=== PATIENT | female | born 1990 | race Caucasian/White ===

== ENCOUNTER 2017-02-17 16:32 | Emergency (ER) | payer OTHER ==
[~2017-02-17] VITALS: Ht 165.1 cm; Wt 100.0 kg
[2017-02-17 16:52] VITALS: BP 115/71; PULSE 80; RESP 20; O2SAT 100
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
[2017-02-17 17:40] LABS: BASOPHILS % (AUTO) 0.1 % (0-3); MONOCYTES % (AUTO) 5.7 % (4-12); Mean Corpuscular Hemoglobin 28.5 pg (27.0-35.0); Mean Corpuscular Volume 86.1 fL (81-100); NEUTROPHILS % (AUTO) 78.2 % (40-74); Platelet Count 227 bil/L (150-400)
[2017-02-17 18:06] VITALS: BP 130/78; PULSE 88; RESP 18; O2SAT 100
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
[2017-02-17] MEDS ORDERED: HYDROmorphone 1 mg/mL Inj IVPUSH ONE (18:20)
[2017-02-17] MEDS ORDERED: oxyCODONE-Acetamin 5-325 mg Tablet PO ONE (19:40)
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
[2017-02-17] MEDS ORDERED: _oxyCODONE/APAP 5-325 mg Tablet PO PRN (20:20)
[2017-02-17 20:25] VITALS: BP 120/70; PULSE 68; RESP 18; O2SAT 99
[2017-02-17] MEDS ORDERED: OXYC-407 PO (20:50)
[2017-02-17 21:14] VITALS: BP 120/70; PULSE 68; RESP 18; O2SAT 99
== END 2017-02-17 21:15 | disposition home or self-care (01) ==
LOC: EDBD 16:32 → SED 16:32
DX: S40.012A Contusion of left shoulder, initial encounter (principal); S80.12XA Contusion of left lower leg, initial encounter; V48.5XXA Car driver injured in noncollision transport accident in traffic accident, initial encounter; Y93.9 Activity, unspecified; Y92.410 Unspecified street and highway as the place of occurrence of the external cause; Y99.8 Other external cause status; Z91.018 Allergy to other foods
CPT/HCPCS: 36415; 71010; 73000; 73590; 80053; 82550; 85025; 96374; 99284; J1170

== ENCOUNTER 2017-03-01 13:09 | Inpatient (IN) | payer OTHER ==
[~2017-03-01] VITALS: Ht 165.1 cm; Wt 101.7 kg
[~2017-03-01 13:09] MED LIST: OXYC-407 PO
[2017-03-01 13:36] VITALS: BP 117/80; PULSE 80; RESP 16; O2SAT 100
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
[2017-03-01] MEDS ORDERED: cefTRIAXone Inj 2,000 MG in Dextrose 5% 50 ML IV STA (15:38)
[2017-03-01] MEDS ORDERED: 0.9% Sodium Chloride 1,000 ML IV ONE (15:38)
[2017-03-01] MEDS ORDERED: Alum-Mag Hydrox-Simeth 30 mL Suspension PO PRN ×2 (15:40→17:10)
[2017-03-01] MEDS ORDERED: Ondansetron 2 mg/mL 2 mL Inj IVPUSH PRN ×2 (15:40→17:10)
[2017-03-01] MEDS ORDERED: Vancomycin Dose per Pharmacist XX ONE (15:40)
[2017-03-01] MEDS ORDERED: HYDROmorphone 0.5 mg/0.5 mL iSecure Syringe IVPUSH ONE (15:40)
[2017-03-01] MEDS ORDERED: Vancomycin Inj 2,000 MG in 0.9% Sodium Chloride 500 ML IV ONE (15:45)
[2017-03-01 16:10] LABS: BASOPHILS % (AUTO) 0.2 % (0-3); EOSINOPHILS % (AUTO) 2.1 % (0-5); MONOCYTES % (AUTO) 5.6 % (4-12); Mean Corpuscular Hemoglobin 28.1 pg (27.0-35.0); Mean Corpuscular Volume 86.5 fL (81-100); NEUTROPHILS % (AUTO) 76.5 % (40-74); Platelet Count 269 bil/L (150-400)
[2017-03-01] MEDS ORDERED: ACET325T51 PO (16:11)
[2017-03-01] MEDS ORDERED: IBUP-1827 PO (16:11)
--- NOTE | 2017-03-01 16:28 | DRSVH ---
PROCEDURE: X-RAY LEFT TIBIA/FIBULA, TWO VIEWS ([id number]) INDICATIONS: LLE pain TECHNIQUE: 2 views of the tibia and fibula were acquired. COMPARISON: [facility], CR, XR TIBIA FIBULA 2VW LT, 02/17/2017, 17:37. FINDINGS: Bones: No fractures or dislocations. No suspicious bony lesions. Soft tissues: Prominent soft tissue edema is noted along the medial aspect of the mid left lower leg, which has increased since the previous exam with slight increasing subcutaneous edema. IMPRESSION: 1. No acute osseous abnormality of the left lower leg. 2. Increasing soft tissue swelling along the medial aspect of the mid left lower leg is concerning f or possible hematoma or muscle trauma. Please consider MRI for further evaluation. Dictated by: Duane Kelley M.D. on 03/01/2017 at 15:20 Approved by: Duane Kelley M.D. on 03/01/2017 at 15:26
[2017-03-01 16:32] VITALS: BP 114/71; PULSE 81; RESP 16; O2SAT 100
[2017-03-01 16:39] LABS: Creatine Kinase 45 U/L (21-215)
[2017-03-01 16:40] VITALS: BP 134/78; PULSE 69; RESP 16; O2SAT 100
[2017-03-01] MEDS ORDERED: Polyethylene Glycol (PEG) 17 Gm Powder PO PRN (17:10)
[2017-03-01] MEDS: Vancomycin Dose per Pharmacist XX SCH (17:15)
--- NOTE | 2017-03-01 17:42 | NUR ---
Admit to room 240-1 Pt arrived from ER on stretcher. Able to stand and transfer to bed indep. Clarified vanco dosing with pharmacy. Oriented to room and call light. Request made to md for diet and PO pain medication.
[2017-03-01] MEDS: HYDROcodone-APAP 5-325 mg Tablet PO PRN ×2 (18:17→22:43)
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
--- NOTE | 2017-03-01 19:36 | DRSVH ---
PROCEDURE: US EXTREMITY SONOGRAM LIMITED ([id number]) INDICATIONS: cellulitis, possible abscess TECHNIQUE: Real-time scanning was performed of the distal right lower extremity, with image document ation. COMPARISON: None. FINDINGS: There is a large mostly anechoic fluid collection or hematoma with linear areas of increase d echogenicity throughout the subcutaneous tissues of the clinical area of concern. IMPRESSION: Mass involving the entire left calf clinical area of concern may represent hematoma or fl uid collection with synechia. Infection cannot be excluded. This area could be sampled under ultrasou nd guidance if needed. Dictated by: Bart Garcia M.D. on 03/01/2017 at 19:29 Approved by: Bart Garcia M.D. on 03/01/2017 at 19:34
[2017-03-01 20:31] VITALS: BP 128/78; PULSE 78; RESP 18; O2SAT 99
--- NOTE | 2017-03-01 20:39 | NUR ---
MRI off floor via w/c to have MRI Addendum: 03/01/17 at 2119 by ASHOK MITCHELL RN returned floor
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
[2017-03-02] MEDS: Heparin 5,000 Unit/mL Inj SUBQ SCH ×3 (00:23→16:51)
--- NOTE | 2017-03-02 00:24 | PCM.PHAPRO ---
Progress Date of Service: Mar 02, 2017 Left lower extremity cellulitis Vancomycin Management Per Pharmacy: Indication: Cellulitis Goal Trough: 10-15 mg/dL Labs: WBC: 9.3 Lactate: 0.7 ESR: 44 CRP: 5.0 SrCr: 0.63 mg/dL Est CrCl: > 120 mL/min Additional Abx: Rocephin Nephrotoxic Risk Factors: None Vitals: All stable Recommendation: Load: Vancomycin 2000 mg IV x 1 (~20 mg/kg) Maintenance: Vancomycin 1250 mg IV Q12h (~15 mg/kg adjusted body weight) Trough: Draw on 03/04 @ 0730 Pharmacy to continue to monitor and adjust dose as needed. Thank You, Lizy Joseph, Pharm D. Lizy Joseph Mar 02, 2017 00:24
[2017-03-02 00:37] VITALS: BP 98/62; PULSE 81; RESP 16; O2SAT 96
[2017-03-02 05:59] VITALS: BP 106/71; PULSE 78; RESP 17; O2SAT 98
[2017-03-02 07:17] LABS: BASOPHILS % (AUTO) 0.2 % (0-3); MONOCYTES % (AUTO) 8.1 % (4-12); Mean Corpuscular Hemoglobin 28.6 pg (27.0-35.0); Mean Corpuscular Volume 87.8 fL (81-100); NEUTROPHILS % (AUTO) 64.7 % (40-74); Platelet Count 238 bil/L (150-400)
[2017-03-02 07:40] VITALS: BP 104/67; PULSE 89; RESP 18; O2SAT 97
[2017-03-02] MEDS: cefTRIAXone Inj 2,000 MG in Dextrose 5% Minibag Plus 50 ML IV SCH (08:14)
[2017-03-02] MEDS: HYDROcodone-APAP 5-325 mg Tablet PO PRN ×2 (08:22→16:52)
[2017-03-02] MEDS: Vancomycin Dose per Pharmacist XX SCH (08:28)
[2017-03-02] MEDS ORDERED: Vancomycin Inj 1,250 MG in 0.9% Sodium Chloride 250 ML IV SCH (08:30)
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
[2017-03-02 17:50] VITALS: BP 111/74; PULSE 77; RESP 18; O2SAT 98
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
--- NOTE | 2017-03-02 18:01 | NUR ---
Pain/skin Pain in left lower leg controlled with 1 norco prn, given 2x today. Reports less pain with ambulation to BR. Left barnhart/calf region decreased in redness from area marked yesterday. less swelling Per patient - Dr Olivares and group plan to place a drain, cont to monitor.
[2017-03-02 20:38] VITALS: BP 111/74; PULSE 88; RESP 18; O2SAT 99
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
[2017-03-03] MEDS: Heparin 5,000 Unit/mL Inj SUBQ SCH ×3 (00:38→16:52)
[2017-03-03 06:03] VITALS: BP 114/60; PULSE 87; RESP 17; O2SAT 97
--- NOTE | 2017-03-03 06:31 | NUR ---
Shift note Uneventful night,, went through the whole night without need for pain meds
[2017-03-03] MEDS: cefTRIAXone Inj 2,000 MG in Dextrose 5% Minibag Plus 50 ML IV SCH (08:13)
[2017-03-03 10:59] VITALS: BP 126/83; PULSE 83; RESP 18; O2SAT 96
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
[2017-03-03 14:28] VITALS: BP 108/67; PULSE 75; RESP 18; O2SAT 97
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
[2017-03-03 18:27] VITALS: BP 124/79; RESP 18; O2SAT 97
[2017-03-03] MEDS: HYDROcodone-APAP 5-325 mg Tablet PO PRN (19:39)
[2017-03-04] MEDS: Heparin 5,000 Unit/mL Inj SUBQ SCH ×3 (00:36→16:12)
[2017-03-04 00:48] VITALS: BP 100/56; PULSE 67; RESP 14; O2SAT 99
[2017-03-04] MEDS ORDERED: Vancomycin Serum Trough XX ONE (07:30)
--- NOTE | 2017-03-04 07:34 | NUR ---
Pain/Rest Pain 5/10 with activity; only one dose of [place] administered and Pt stated she was able to sleep for a few hours with adequate pain control 2/10. Pt not interested in getting up and ambulating until day, would prefer to rest since pain increases with activity.
[2017-03-04] MEDS: cefTRIAXone Inj 2,000 MG in Dextrose 5% Minibag Plus 50 ML IV SCH (08:28)
[2017-03-04] MEDS: HYDROcodone-APAP 5-325 mg Tablet PO PRN ×3 (08:30→21:52)
--- NOTE | 2017-03-04 10:30 | NUR ---
Morning Rounds Staffed patient's case with Dr. Wilde and social services counselor Sandy. Dr. Wilde to follow up on possible surgical intervention to relieve pressure of hematoma. No needs from social work standpoint.
[2017-03-04 11:32] VITALS: BP 107/61; PULSE 61; RESP 16; O2SAT 98
--- NOTE | 2017-03-04 12:15 | NUR ---
Patient Status Contacted Dr. Wilde with the following cook page: Patient's mother asked me to page you, she and patient stated they would like drainage done today as discussed by Dr. Johnston yesterday. Thank you. Dhara [facility] ext [phone]
[2017-03-04] MEDS ORDERED: SENN-133 PO (12:42)
[2017-03-04] MEDS ORDERED: POLY17PO6 PO (12:42)
[2017-03-04] MEDS ORDERED: OXYC-407 PO (12:43)
--- NOTE | 2017-03-04 18:00 | NUR ---
Patient Status/IR status Patient and patient's family questioned whether or not patient would be having procedure done today, as it was discussed with them earlier today and they were expecting the procedure to be done today. I contact Dr. Wilde to find out more about the scheduling of the procedure, as no further information has been given. Dr. Wilde stated when she spoke with Dr. Ahmadi earlier today, he stated he would do the procedure today, but will now contact him to find out the status. Dr. Wilde called me back and stated Dr. Ahmadi has been working on procedures all day and has been trying to get to patient, but there have been several ER priority cases that have come up, along with some staffing issues, that has caused him to be unable to get to patient at this time, but intends to try to still get to her tonight. Dr. Wilde stated if not tonight, then it may have to be done in the morning. I explained this to the patient and the family, they understood, but were still upset at the lack of communication, as they stated they should have been informed of the possibility that it may not be done today. Patient and family stated being upset because they feel as though something should have been as early as , but now its the weekend and nothing is getting done.
[2017-03-04 19:39] VITALS: BP 118/80; PULSE 78; RESP 17; O2SAT 98
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
[2017-03-05] MEDS: Heparin 5,000 Unit/mL Inj SUBQ SCH ×2 (00:21→08:10)
[2017-03-05 05:25] VITALS: BP 101/71; PULSE 84; RESP 16; O2SAT 99
--- NOTE | 2017-03-05 05:28 | NUR ---
Interventional Radiology Transported pt via wheelchair to IR, procedure done by Dr. Ahmadi specimen to lab, pt back to floor at 2130, tolerated procedure well.
[2017-03-05] MEDS ORDERED: AMOX500T2 PO (07:21)
[2017-03-05] MEDS ORDERED: LACT1CAP26 PO (07:23)
[2017-03-05] MEDS: cefTRIAXone Inj 2,000 MG in Dextrose 5% Minibag Plus 50 ML IV SCH (08:10)
[2017-03-05 10:08] VITALS: BP 115/73; PULSE 86; RESP 16; O2SAT 97
--- NOTE | 2017-03-05 10:55 | PCM.DIMED ---
Discharge Instructions Date of Service Mar 05, 2017 Dates of Hospitalization Mar 01, 2017 at 16:12 Discharge Diagnosis Discharge Diagnosis Lower L leg Cellulitis, Large Hematoma lower L leg s/p U/S guided percutaneous drainage Medication Instructions Additional med instructions Please take antibiotic for ten days as prescribed. Take probiotics to avoid diarrhea while you are on antibiotics. Diet Discharge Diet: No restrictions Call your provider Call your provider for: Fever or Chills, Shortness of breath, Bleeding, Chest pain, Vomitting, Excessive diarrhea, Weakness (unilateral), Other Patient Instructions Follow-up plan Please f/u with PCP in one week. Notes to PCP: Results of the u/s guided aspiration fluid cultures are pending at the time of her discharge Radha Wilde DO Mar 05, 2017 07:26
--- NOTE | 2017-03-05 11:41 | NUR ---
Social Work- Discharge Data: EMR reviewed. Pt is on day 4 of hospitalization. Pt discussed in multidisciplinary rounds, pt to discharge home today. Pt to d/c on oral abx. SW met with pt and father at bedside regarding discharge plan. Pt's father to transport home at d/c, no additional d/c planning needs. All updated and agreeable to plan. Assessment: Pt who is independent at baseline. Plan: Pt's father to transport home at d/c, no additional d/c planning needs. Nataly Bourgeois MSW
--- NOTE | 2017-03-05 11:52 | NUR ---
Discharge Note Patient provided all discharge instructions and information at this time, no questions from patient or patient family. Patient's IV discontinued intact at this time. Patient and patient's family gathered all belongings from room at this time. Patient transported to waiting vehicle via wheelchair at this time.
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
== END 2017-03-05 11:45 | disposition home or self-care (01) | DRG 603 ==
LOC: SED 13:09 → INTOOBSV 16:12 → MOC 16:12 → OBSVTOIN 16:12
PROVIDERS: ADMIT Family Medicine; ATTEND Family Medicine
PROC: 0J9P3ZZ Drainage of Left Lower Leg Subcutaneous Tissue and Fascia, Percutaneous Approach (ICD-10-PCS; principal; 2017-03-04)
DX: L03.116 Cellulitis of left lower limb (principal); S80.12XA Contusion of left lower leg, initial encounter; S87.82XS Crushing injury of left lower leg, sequela; G43.909 Migraine, unspecified, not intractable, without status migrainosus; V43.52XS Car driver injured in collision with other type car in traffic accident, sequela; E66.9 Obesity, unspecified; Z68.37 Body mass index [BMI] 37.0-37.9, adult